=== PATIENT | female | born 1975 | race Caucasian/White ===

== ENCOUNTER 2024-01-19 10:54 | Emergency (ER) | payer SELFPAY ==
[2024-01-19 11:17] VITALS: BP 168/77; PULSE 87; RESP 18; TEMP 37; O2SAT 97; BMI 29.9
--- NOTE | 2024-01-19 11:26 | DI.CT.S_ITS ---
PROCEDURE: CT HEAD/BRAIN WO CON INDICATIONS: syncopal fall Friday night TECHNIQUE: Noncontrast 4.5 mm thick angled axial sections acquired from the foramen magnum to the vertex, with coronal and sagittal reformats. For radiation dose reduction, the following was used: automated exposure control, adjustment of mA and/or kV according to patient size. COMPARISON: [facility], CT, CT CERVICAL SPINE WO CON, 01/19/2024, 12:26. [facility], CT, CT FACIAL BONES WO CON, 01/19/2024, 12:26. FINDINGS: Image quality: Mild streak artifact can be seen through the skull base. CSF spaces: Basal cisterns are patent. No extra-axial fluid collections. Ventricles are normal in size and shape. Brain: No midline shift. No intracranial masses or hemorrhage. Larsen-white matter interface is normal. Skull and face: Calvarium and visualized facial bones are intact, without suspicious lesions. Sinuses: Visualized sinuses and mastoids are clear. IMPRESSION: No acute intracranial hemorrhage is seen. No acute intracranial pathology. Dictated by: Subhash Naik M.D. on 01/19/2024 at 11:50 Approved by: Subhash Naik M.D. on 01/19/2024 at 11:50
--- NOTE | 2024-01-19 11:26 | DI.CT.S_ITS ---
PROCEDURE: CT CERVICAL SPINE WO CON INDICATIONS: syncopal fall Friday night TECHNIQUE: Noncontrast 3 mm thick sections acquired from the skull base to the T4 level. Sagittal and coronal reformats were then constructed. For radiation dose reduction, the following was used: automated exposure control, adjustment of mA and/or kV according to patient size. COMPARISON: None. FINDINGS: Image quality: Excellent. Bones: No fractures or dislocations. Visualized superior ribs are intact. Cervical spondylosis centered at C5-C6 and C6-C7. Posterior disc osteophyte complex. There is a degree of canal stenosis at C5-C6. Soft tissues: Prevertebral soft tissues are normal in thickness. No paravertebral hematomas. No apical pneumothoraces. IMPRESSION: 1. No displaced fracture or traumatic subluxation. 2. Cervical spondylosis. Dictated by: Jordan Thomas M.D. on 01/19/2024 at 13:17 Approved by: Jordan Thomas M.D. on 01/19/2024 at 13:18
--- NOTE | 2024-01-19 11:26 | DI.CT.S_ITS ---
PROCEDURE: CT FACIAL BONES WO CON INDICATIONS: syncopal fall Friday night TECHNIQUE: Noncontrast 2.5 mm thick axial images acquired from the mandible through the frontal sinuses, with coronal and sagittal reformatting. For radiation dose reduction, the following was used: automated exposure control, adjustment of mA and/or kV according to patient size. COMPARISON: [facility], CT, CT CERVICAL SPINE WO CON, 01/19/2024, 12:26. [facility], CT, CT HEAD/BRAIN WO CON, 01/19/2024, 12:26. FINDINGS: Image quality: Excellent. Bones and teeth: Orbital burgos are intact. Sinus burgos show no fracture or deformity. Nasal bones and septum are intact. There is chronic moderate rightward nasal septal deviation. Visualized portions of the mandible demonstrate no fractures or subluxation. Zygomatic arches are intact. Pterygoid plates are intact. Visualized portions of the skull base and auditory canals are intact. Sinuses: Paranasal sinuses are aerated, without fluid levels, mucosal thickening, or mucoceles. Mastoid air cells are aerated. The ostiomeatal complexes are patent, yet they are constitutionally narrowed, with bilateral Stephany cells. Soft tissues: No edema, masses, or fluid collections. No enlarged lymph nodes. No soft tissue lacerations or debris. Vascular: Visualized vascular structures appear normal in the absence of contrast. Bony vascular foramina and canals are intact. IMPRESSION: Negative for facial bone fracture. Dictated by: Subhash Naik M.D. on 01/19/2024 at 11:50 Approved by: Subhash Naik M.D. on 01/19/2024 at 11:51
--- NOTE | 2024-01-19 13:52 | EKG_ITS ---
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
--- NOTE | 2024-01-19 14:20 | PC.NURSE ---
Patient refused Chest xray and labs at this time. Wants to talk to the doctor first. Ok to have EKG.
--- NOTE | 2024-01-19 15:15 | ED.HEATRA ---
HPI - Head Injury General Chief complaint: Head Injury Stated complaint: fell friday- wants to be checked out Time Seen by Provider: 01/19/24 13:36 Source: patient Mode of arrival: Ambulatory History of Present Illness HPI Narrative: 48-year-old female no reported medical issues who had syncopal episode Friday. Patient states she has been having little bit of neck discomfort had had much who that day has been sleeping mostly took a hot bath with Epsom salts folic she was overheated so got out started to dry off started to have some tunnel vision and thought she could walk to the bedroom but then woke up on the floor. States she thinks she hit her knees versus there some bruising and then has bruising below both eyes. She states her nose has a little bit of dried blood initially but none since. Denies any headache since, no recurrent epi syncopal episodes or lightheadedness, she has had little bit of side discomfort in her neck but no midline tenderness. No nausea or vomiting no numbness tingling or weakness, no chest pain or shortness of breath, no persistent nasal bleeding. No other new changes. States patient states no daily medications no anticoagulants no prior surgeries. No known drug allergies. States tetanus is up-to-date. No tobacco, occasional alcohol had a drink on . No recreational drugs. Patient presents today she thought she might have a broken nose and was doing some research and noted that the bilateral bruising below her eyes could signal something more emergent so she presents for evaluation. Related Data Allergies Allergy/AdvReac Type Severity Reaction Status Date / Time No Known Drug Allergies Allergy Verified 01/19/24 11:17 Review of Systems Review of Systems ROS Unobtainable: All systems reviewed & are unremarkable except as noted in HPI and below Patient History Social History Smoking Status: Never smoker Smoking Status: Never smoker alcohol intake frequency: a few times a month Substance Use Type: marijuana Exam Narrative Exam Narrative: GEN: Patient appears in mild distress. HEAD: No evidence of trauma, no ma sign, bilateral raccoon sign. NECK: Nontender, painless range of motion, trachea midline Negative Nexus criteria, no midline line tenderness, distracting injury, altered mental status, neuro deficit, recent EtOH. EYES: PERRLA, EOMI ENT: External inspection normal except for bilateral raccoon, there is some bruising of the nose but no obvious deformity, no other bony tenderness to the face. Trachea is midline, TM's are normal no hemotypanum, Nares are clear, no septal hematoma, no dental or oral injury, airway is normal and with normal occlusion, No bony tenderness RESP: Chest is nontender and has symmetric movement, no ecchymosis, breath sounds are normal no crackles, wheezes or rales CVS: Heart sounds are normal, no murmur noted, No JVD. ABG/GI: Nontender, soft, normal bowel sounds, no distention, no organomegaly NEURO: Oriented AOx3, neuro is grossly intact, sensation and motor is normal all 4 extremities moving, cranial nerves II through XII are intact, GCS is 15 PSYCH: Normal mood and affect SKIN: Intact, warm and dry, no crepitus and without decubitus BACK: No CVA tenderness, no vertebral tenderness, no step-off's, no crepitus EXT: Hips are nontender, no pedal edema, normal color and temperature, normal range of motion of extremities with normal tendon exam, normal gait. Initial Vital Signs Initial Vital Signs: Vital Signs Temperature 98.6 F 01/19/24 11:17 Pulse Rate 87 01/19/24 11:17 Respiratory Rate 18 01/19/24 11:17 Blood Pressure 168/77 H 01/19/24 11:17 Pulse Oximetry 97 01/19/24 11:17 Oxygen Delivery Method Room Air 01/19/24 11:17 Course Orders Ordered: ED Orders 01/19/24 11:26 CT cervical spine wo con Stat CT facial bones wo con Stat CT head/brain wo con Stat 01/19/24 13:52 EKG-12 Lead Stat Vital Signs Vital signs: Vital Signs - 8 hr 01/19/24 11:17 01/19/24 16:06 Temperature 98.6 F 98.8 F Pulse Rate 87 83 Respiratory Rate 18 16 Blood Pressure 168/77 H 138/80 Pulse Oximetry 97 100 Oxygen Delivery Method Room Air Room Air MDM - Head Injury Imaging Data CT - cervical spine: Radiologist's Impression: Kwasi Sabillon??48??F??1975 ? Allergy/Adv: No Known Drug Allergies (More??) Close Head CT (Signed) Matthieu Naiksse - 01/19/[address] (Signed) GumaroSubhash - 01/19/[address] (Signed) Jordan Thomas - 01/19/24 [place]?[address] [address] [address] Scan Report Signed Patient: Kwasi Sabillon MR#: [id number] : 1975 Acct:[id number] Age/Sex: 48 / F Date of Service: 01/19/24 Loc: ED Accession Number: [id number] Procedure: CT cervical spine wo con Ordering Provider: Lillian Turk D.O. PROCEDURE: CT CERVICAL SPINE WO CON INDICATIONS: syncopal fall Friday night TECHNIQUE: Noncontrast 3 mm thick sections acquired from the skull base to the T4 level. Sagittal and coronal reformats were then constructed. For radiation dose reduction, the following was used: automated exposure control, adjustment of mA and/or kV according to patient size. COMPARISON: None. FINDINGS: Image quality: Excellent. Bones: No fractures or dislocations. Visualized superior ribs are intact. Cervical spondylosis centered at C5-C6 and C6-C7. Posterior disc osteophyte complex. There is a degree of canal stenosis at C5-C6. Soft tissues: Prevertebral soft tissues are normal in thickness. No paravertebral hematomas. No apical pneumothoraces. IMPRESSION: 1. No displaced fracture or traumatic subluxation. 2. Cervical spondylosis. Dictated by: Jordan Thomas M.D. on 01/19/2024 at 13:17 Approved by: Jordan Thomas M.D. on 01/19/2024 at 13:18 CT facial bones: Radiologist's Impression: Kwasi Sabillon??48??F??1975 ? Allergy/Adv: No Known Drug Allergies (More??) Close Head CT (Signed) GumaroSubhash - 01/19/[address] (Signed) GumaroSubhash - 01/19/[address] (Signed) Jordan Thomas - 01/19/24 [place]?[address] [address] [address] Scan Report Signed Patient: Kwasi Sabillon MR#: [id number] : 1975 Acct:[id number] Age/Sex: 48 / F Date of Service: 01/19/24 Loc: ED Accession Number: [id number] Procedure: CT cervical spine wo con Ordering Provider: Lillian Turk D.O. PROCEDURE: CT CERVICAL SPINE WO CON INDICATIONS: syncopal fall Friday night TECHNIQUE: Noncontrast 3 mm thick sections acquired from the skull base to the T4 level. Sagittal and coronal reformats were then constructed. For radiation dose reduction, the following was used: automated exposure control, adjustment of mA and/or kV according to patient size. COMPARISON: None. FINDINGS: Image quality: Excellent. Bones: No fractures or dislocations. Visualized superior ribs are intact. Cervical spondylosis centered at C5-C6 and C6-C7. Posterior disc osteophyte complex. There is a degree of canal stenosis at C5-C6. Soft tissues: Prevertebral soft tissues are normal in thickness. No paravertebral hematomas. No apical pneumothoraces. IMPRESSION: 1. No displaced fracture or traumatic subluxation. 2. Cervical spondylosis. Dictated by: Jordan Thomas M.D. on 01/19/2024 at 13:17 Approved by: Jordan Thomas M.D. on 01/19/2024 at 13:18 CT scan - head: Radiologist's Impression: Close Head CT (Signed) Subhash Naik - 01/19/[address] (Signed) Subhash Naik - 01/19/[address] (Signed) Jordan Thomas - 01/19/24 [place] [address] CT Scan Report Signed Patient: Kwasi Sabillon MR#: [id number] : 1975 Acct:[id number] Age/Sex: 48 / F Date of Service: 01/19/24 Loc: ED Accession Number: [id number] Procedure: CT head/brain wo con Ordering Provider: Lillian Turk D.O. PROCEDURE: CT HEAD/BRAIN WO CON INDICATIONS: syncopal fall Friday TECHNIQUE: Noncontrast 4.5 mm thick angled axial sections acquired from the foramen magnum to the vertex, with coronal and sagittal reformats. For radiation dose reduction, the following was used: automated exposure control, adjustment of mA and/or kV according to patient size. COMPARISON: Merged With [facility], CT, CT CERVICAL SPINE WO [facility], 01/19/2024, 12:26. Merged With [facility], CT, CT FACIAL BONES WO CON, 01/19/2024, 12:26. FINDINGS: Image quality: Mild streak artifact can be seen through the skull base. CSF spaces: Basal cisterns are patent. No extra-axial fluid collections. Ventricles are normal in size and shape. Brain: No midline shift. No intracranial masses or hemorrhage. Larsen-white matter interface is normal. Skull and face: Calvarium and visualized facial bones are intact, without suspicious lesions. Sinuses: Visualized sinuses and mastoids are clear. IMPRESSION: No acute intracranial hemorrhage is seen. No acute intracranial pathology. Dictated by: Subhash Naik M.D. on 01/19/2024 at 11:50 Approved by: Subhash Naik M.D. on 01/19/2024 at 11:50 ECG Data Attestation: I personally reviewed and interpreted this ECG as follows: Interpretation: Sinus rhythm rate of 74 MI 142 QRS 82 QTC of 412. No acute ST changes appreciated. [facility] Narrative Medical decision making narrative: 48-year-old female with syncopal event after hot bath on Friday night. Patient notes she has not had much to eat or drink that day, got very mining professionals the bathtub got up and likely had a vagal episode after being vaso dilated by the water. Has not had any additional episodes of syncope no persistent headache or other changes she does have bile raccoon sign and bruising of her nose. Patient was reluctant to pursue further lab workup and vitals have over bent all been appropriate with no additional episodes and felt appropriate to hold off on additional labs at this time. Head CT noncontrast shows no acute intracranial hemorrhage, no acute intracranial pathology. Facial bone CT is negative for facial bone fractures. There is some chronic moderate right word nasal septal deviation ostiomeatal complexes are patent yet they are constitutionally narrowed with bilateral Stephany cells. CT C-spine shows no displaced fracture or traumatic subluxation, cervical spondylosis. EKG shows sinus rhythm with no acute changes. Discussed findings with patient she feels comfortable with to return home. Discussed lab work but with her fairly normal vital signs and no additional episodes suspect more of a vagal episode and patient feels comfortable with the plan to return if she is any additional changes. Discharge Plan Departure Patient Disposition: Home Clinical Impression: Syncope Instructions: DI for Syncope in Adults (Fainting) Activity Restrictions/Additional Instructions: Your CT imaging shows chronic moderate rightward nasal septal deviation but no other major changes with no breaks or fractures to the your head CT does not show any bleed or intracranial changes in your cervical spine of your neck does not show any fractures or subluxation. I hope you continue to feel improved. Please return if you have recurrent episodes of lightheadedness or passing out, new bleeding, severe headaches, nausea or vomiting, new numbness, tingling or weakness or other new or concerning changes. Stand Alone Forms: Patient Portal/API/Survey
[2024-01-19 16:06] VITALS: BP 138/80; PULSE 83; RESP 16; TEMP 37.1; O2SAT 100
== END 2024-01-19 16:07 | disposition home or self-care (01) ==
PROVIDERS: Emergency Provider Emergency Medicine
DX: R55 Syncope and collapse (principal); S09.93XA Unspecified injury of face, initial encounter; M47.812 Spondylosis without myelopathy or radiculopathy, cervical region; R07.9 Chest pain, unspecified
CPT/HCPCS: 70450; 70486; 72125; 93005; 99282; 99284